=== PATIENT | female | born 1945 | race African-American/Black ===

== ENCOUNTER 2018-08-04 15:41 | Inpatient (IN) | payer MEDICARE, MEDICAID ==
[~2018-08-04] VITALS: Ht 165.1 cm; Wt 79.4 kg
[2018-08-04] MEDS ORDERED: ACETAMINOPHEN 650MG SUPP PR PRN (23:45)
[2018-08-04] MEDS ORDERED: CLONIDINE 0.1MG TABLET PO PRN (23:45)
[2018-08-04] MEDS ORDERED: NA PHOS,M-B/NA PHOS,DI-BA ENEMA 118ML PR PRN (23:45)
[2018-08-04] MEDS ORDERED: HYDROCODONE/ACETAMINOPHEN 10/325MG TABLET PO PRN (23:45)
[2018-08-04] MEDS ORDERED: DOCUSATE SODIUM 100MG CAPSULE PO PRN (23:45)
[2018-08-04] MEDS ORDERED: DIPHENHYDRAMINE 50MG/ML VIAL IV PRN (23:45)
[2018-08-04] MEDS ORDERED: ACETAMINOPHEN 650MG/20.3ML UDC GT PRN (23:45)
[2018-08-04] MEDS ORDERED: MAGNESIUM/ALUMINUM HYDROXIDE/SIMETHICONE 30ML UDC PO PRN (23:45)
[2018-08-04] MEDS ORDERED: ONDANSETRON HCL 4MG/2ML INJ IV PRN (23:45)
[2018-08-04] MEDS ORDERED: ACETAMINOPHEN 325MG TABLET PO PRN (23:45)
[2018-08-04] MEDS ORDERED: IPRATROPIUM/ALBUTEROL 0.5-3(2.5)MG/3ML NEB INH PRN (23:45)
[2018-08-04] MEDS ORDERED: GUAIFENESIN 200MG/10ML SUGAR FREE UDC PO PRN (23:45)
[2018-08-05 00:01] LABS: CHLORIDE 100 mEq/L (98-107)
[2018-08-05 00:02] LABS: BASOPHILS % 0.5 % (0.0-2.0); EOSINOPHILS % 0.1 % (0.0-5.0); HEMATOCRIT. 44.3 % (36.0-48.0); HEMOGLOBIN. 14.8 g/dL (12.0-16.0); INR 1.5; LYMPHOCYTES % 24.7 % (20.0-50.0); MEAN CORPUSCULAR HEMOGLOBIN 28.9 pg (28.0-32.0); MEAN CORPUSCULAR VOLUME 86.5 fL (81.0-99.0); MEAN PLATELET VOLUME 8.9 fl (7.4-10.4); MONOCYTES % 8.1 % (2.0-8.0); NEUTROPHILS % 66.6 % (40.0-76.0); PLATELET 207 x1000/uL (130-400); PROTHROMBIN TIME 15.4 sec (9.1-11.1); RED BLOOD CELL COUNT 5.12 mill/uL (4.2-5.4); RED CELL DISTRIBUTION WIDTH 22.1 % (11.6-14.6)
[2018-08-05] MEDS ORDERED: FUROSEMIDE 40MG/4ML VIAL IVP NR (00:45)
[2018-08-05] MEDS ORDERED: POTASSIUM CHLORIDE 20MEQ/PACKET PO NR (00:45)
[2018-08-05] MEDS ORDERED: ENOXAPARIN 60MG/0.6ML SYR SUBCUT NR (00:45)
[2018-08-05] MEDS ORDERED: ASPIRIN 81MG TABLET PO NR (00:45)
[2018-08-05 01:16] LABS: CLARITY URINE CLEAR (CLEAR); COLOR URINE ORANGE (YELLOW); KETONES URINE NEGATIVE (NEGATIVE); LEUKOCYTE ESTERASE URINE 1+ (NEGATIVE); NITRITE URINE POSITIVE (NEGATIVE); OCCULT BLOOD URINE TRACE (NEGATIVE); PROTEIN URINE 2+ (NEGATIVE); SPECIFIC GRAVITY URINE 1.021 (1.005-1.030)
[2018-08-05 01:34] LABS: *AMPHETAMINES SCREEN URINE NEGATIVE (NEGATIVE); *BARBITURATES SCREEN URINE NEGATIVE (NEGATIVE); *BENZODIAZEPINES SCREEN URINE NEGATIVE (NEGATIVE); *COCAINE SCREEN URINE NEGATIVE (NEGATIVE); METHADONE URINE SCREEN NEGATIVE (NEGATIVE); OPIATES URINE SCREEN NEGATIVE (NEGATIVE)
[2018-08-05 01:35] LABS: CANNABINOID URINE SCREEN NEGATIVE (NEGATIVE); PHENCYCLIDINE URINE SCREEN NEGATIVE (NEGATIVE)
[2018-08-05 01:58] LABS: PLATELET ESTIMATE NORMAL
[2018-08-05] MEDS ORDERED: POTASSIUM CHLORIDE INJ 40 MEQ in DEXT 5% WATER 250 ML IV NR (02:30)
[2018-08-05 06:04] LABS: CHLORIDE 101 mEq/L (98-107)
[2018-08-05 06:09] LABS: BASOPHILS % 0.8 % (0.0-2.0); EOSINOPHILS % 0.4 % (0.0-5.0); HEMATOCRIT. 42.8 % (36.0-48.0); HEMOGLOBIN. 14.1 g/dL (12.0-16.0); MEAN CORPUSCULAR HEMOGLOBIN 28.6 pg (28.0-32.0); MEAN CORPUSCULAR VOLUME 86.6 fL (81.0-99.0); MEAN PLATELET VOLUME 9.1 fl (7.4-10.4); MONOCYTES % 10.3 % (2.0-8.0); NEUTROPHILS % 58.5 % (40.0-76.0); PLATELET 212 x1000/uL (130-400); RED BLOOD CELL COUNT 4.94 mill/uL (4.2-5.4); RED CELL DISTRIBUTION WIDTH 22.5 % (11.6-14.6)
[2018-08-05 06:20] LABS: LDL CHOLESTEROL 103 mg/dL (5-100)
[2018-08-05 06:21] LABS: CREATINE KINASE 114 IU/L (26-192); HDL CHOLESTEROL 31 mg/dL (40-59)
[2018-08-05 06:24] LABS: CREATINE KINASE MB FRACTION 1.7 ng/mL (0.5-3.6)
[2018-08-05 08:21] VITALS: BP 124/88
[2018-08-05] MEDS: FUROSEMIDE 40MG/4ML VIAL IV SCH (10:18)
[2018-08-05] MEDS ORDERED: POTASSIUM CHLORIDE 20MEQ TABLET SR PO SCH ×2 (10:30→14:00)
[2018-08-05 11:06] LABS: T4 FREE 1.56 ng/dL (0.76-1.46)
[2018-08-05] MEDS: ENOXAPARIN 60MG/0.6ML SYR SUBCUT SCH ×2 (11:13→21:07)
[2018-08-05 12:00] VITALS: BP 122/95
[2018-08-05] MEDS: DILTIAZEM HCL 30MG TABLET PO SCH ×2 (14:12→18:19)
[2018-08-05] MEDS: SODIUM CHLORIDE 0.9% INJ 3ML FLUSH IVF SCH ×2 (14:13→21:08)
[2018-08-05 15:55] LABS: CREATINE KINASE MB FRACTION 1.8 ng/mL (0.5-3.6)
[2018-08-05 16:00] VITALS: BP 149/97
[2018-08-05] MEDS ORDERED: DILTIAZEM HCL 30MG TABLET PO SCH (18:00)
[2018-08-05] MEDS ORDERED: POTASSIUM CHLORIDE 20MEQ TABLET SR PO PRN (18:30)
[2018-08-05 20:00] VITALS: BP 113/81
[2018-08-05] MEDS ORDERED: MAGNESIUM 1 G PREMIX 100 ML IV NR (20:00)
[2018-08-05] MEDS ORDERED: ENOXAPARIN 40MG/0.4ML SYR SUBCUT SCH (21:00)
[2018-08-05] MEDS: HYDROCODONE/ACETAMINOPHEN 5/325MG TABLET PO PRN (21:08)
[2018-08-06] VITALS: BP 120/86
[2018-08-06] MEDS: DILTIAZEM HCL 30MG TABLET PO SCH ×4 (01:29→17:58)
[2018-08-06 04:00] VITALS: BP 116/75
[2018-08-06] MEDS: SODIUM CHLORIDE 0.9% INJ 3ML FLUSH IVF SCH ×3 (06:12→20:54)
[2018-08-06 08:00] VITALS: BP 145/94
[2018-08-06] MEDS: ENOXAPARIN 60MG/0.6ML SYR SUBCUT SCH (08:51)
[2018-08-06] MEDS: FUROSEMIDE 40MG/4ML VIAL IV SCH ×2 (08:51→23:11)
[2018-08-06 10:35] LABS: BASOPHILS % 0.6 % (0.0-2.0); EOSINOPHILS % 0.3 % (0.0-5.0); HEMATOCRIT. 43.6 % (36.0-48.0); HEMOGLOBIN. 14.4 g/dL (12.0-16.0); MEAN CORPUSCULAR VOLUME 87.4 fL (81.0-99.0); MEAN PLATELET VOLUME 8.7 fl (7.4-10.4); MONOCYTES % 7.8 % (2.0-8.0); NEUTROPHILS % 61.3 % (40.0-76.0); PLATELET 247 x1000/uL (130-400); RED BLOOD CELL COUNT 4.98 mill/uL (4.2-5.4); RED CELL DISTRIBUTION WIDTH 23.4 % (11.6-14.6)
[2018-08-06 10:43] LABS: CHLORIDE 101 mEq/L (98-107)
[2018-08-06 12:00] VITALS: BP 117/85
[2018-08-06 16:00] VITALS: BP 133/79
[2018-08-06 20:00] VITALS: BP 120/86
[2018-08-06] MEDS: ENOXAPARIN 80MG/0.8ML SYR SUBCUT SCH (20:46)
[2018-08-06] MEDS: CARVEDILOL 3.125 MG TABLET PO SCH (20:47)
[2018-08-06] MEDS ORDERED: ZOLPIDEM TARTRATE 5MG TABLET PO PRN (22:45)
[2018-08-07] MEDS: HYDROCODONE/ACETAMINOPHEN 5/325MG TABLET PO PRN (00:19)
[2018-08-07 01:05] VITALS: BP 104/81
[2018-08-07 04:00] VITALS: BP 112/81
[2018-08-07] MEDS: DILTIAZEM HCL 30MG TABLET PO SCH ×2 (05:35)
[2018-08-07] MEDS: SODIUM CHLORIDE 0.9% INJ 3ML FLUSH IVF SCH ×2 (05:35→13:18)
[2018-08-07 08:00] VITALS: BP 126/85
[2018-08-07] MEDS: CARVEDILOL 3.125 MG TABLET PO SCH (08:41)
[2018-08-07] MEDS: FUROSEMIDE 40MG/4ML VIAL IV SCH (08:43)
[2018-08-07] MEDS: ENOXAPARIN 80MG/0.8ML SYR SUBCUT SCH (08:43)
[2018-08-07] MEDS ORDERED: LOSARTAN POTASSIUM 25 MG TABLET PO SCH (12:00)
[2018-08-07 12:06] VITALS: BP 122/68
[2018-08-07] MEDS ORDERED: APIX5TAB PO (12:07)
[2018-08-07] MEDS ORDERED: COR3 PO (12:07)
[2018-08-07] MEDS ORDERED: LOSA25TA3 PO (12:07)
[2018-08-07] MEDS ORDERED: FURO-151 MT (12:07)
[2018-08-07 13:55] VITALS: BP 122/68
[2018-08-07] MEDS ORDERED: APIXABAN 5 MG TABLET PO SCH (17:00)
== END 2018-08-07 15:40 | disposition home health service (06) | DRG 291 ==
LOC: ER 15:41 → 8WST 23:20 → EDBEDREQ 23:23 → ENRESERV 08-05 07:22
PROVIDERS: ADMIT Family Medicine; ATTEND Family Medicine
DX: I11.0 Hypertensive heart disease with heart failure (principal); I50.31 Acute diastolic (congestive) heart failure; E43 Unspecified severe protein-calorie malnutrition; N39.0 Urinary tract infection, site not specified; I42.9 Cardiomyopathy, unspecified; I48.91 Unspecified atrial fibrillation; E87.6 Hypokalemia; E83.42 Hypomagnesemia; E78.5 Hyperlipidemia, unspecified; Z68.29 Body mass index [BMI] 29.0-29.9, adult; Z90.710 Acquired absence of both cervix and uterus
CPT/HCPCS: 36415; 71045; 78582; 80061; 80305; 82550; 82553; 83036; 83735; 83880; 84132; 84439; 84443; 84484; 85379; 93005; 93306; 93970; 96374; 96375; 99285; A9558; J1650; J1940; J3475; J3480; J7040; J7060

== ENCOUNTER 2021-08-31 13:01 | Emergency (ER) | payer MEDICARE, MEDICAID ==
[~2021-08-31] VITALS: Ht 167.6 cm; Wt 86.0 kg
[~2021-08-31 13:01] MED LIST: APIX5TAB PO; COR3 PO; FURO-151 MT; LOSA25TA3 PO
[2021-08-31 14:17] LABS: BASOPHILS % 0.4 % (0.0-2.0); EOSINOPHILS % 1.3 % (0.0-5.0); HEMATOCRIT. 26.2 % (36.0-48.0); HEMOGLOBIN. 8.1 g/dL (12.0-16.0); LYMPHOCYTES % 23.8 % (20.0-50.0); MEAN CORPUSCULAR HEMOGLOBIN 20.9 pg (28.0-32.0); MEAN CORPUSCULAR VOLUME 68.1 fL (81.0-99.0); MEAN PLATELET VOLUME 7.1 fl (7.4-10.4); MONOCYTES % 6.5 % (2.0-8.0); PLATELET 594 x1000/uL (130-400); RED BLOOD CELL COUNT 3.85 mill/uL (4.2-5.4); RED CELL DISTRIBUTION WIDTH 16.3 % (11.6-14.6)
[2021-08-31 14:33] LABS: PLATELET ESTIMATE INCREASED
[2021-08-31 14:36] LABS: CHLORIDE 102 mEq/L (98-107)
[2021-08-31] MEDS ORDERED: POTASSIUM CHLORIDE 20MEQ TABLET SR PO ONE (17:30)
[2021-08-31 17:37] LABS: INR 1.4; PARTIAL THROMBOPLASTIN TIME 35.8 sec (23.4-31.0); PROTHROMBIN TIME 14.5 sec (9.6-11.0)
[2021-08-31 17:57] LABS: CLARITY URINE CLEAR (CLEAR); COLOR URINE YELLOW (YELLOW); KETONES URINE NEGATIVE (NEGATIVE); LEUKOCYTE ESTERASE URINE NEGATIVE (NEGATIVE); NITRITE URINE NEGATIVE (NEGATIVE); OCCULT BLOOD URINE NEGATIVE (NEGATIVE); PROTEIN URINE NEGATIVE (NEGATIVE)
[2021-08-31 18:10] VITALS: BP 178/83
[2021-08-31] MEDS ORDERED: POTA20TA82 MT (18:27)
== END 2021-08-31 19:03 | disposition home or self-care (01) ==
LOC: ER 13:01
DX: E87.6 Hypokalemia (principal); D17.9 Benign lipomatous neoplasm, unspecified; I10 Essential (primary) hypertension
CPT/HCPCS: 36415; 71045; 80053; 81003; 83880; 84484; 85025; 85379; 93005; 99285

== ENCOUNTER 2022-07-16 14:48 | Emergency (ER) | payer MEDICARE, MEDICAID ==
[~2022-07-16] VITALS: Ht 167.6 cm; Wt 74.5 kg
[~2022-07-16 14:48] MED LIST changes: +POTA-205 MT
[2022-07-16 17:28] LABS: BASOPHILS % 0.2 % (0.0-2.0); EOSINOPHILS % 0.9 % (0.0-5.0); HEMATOCRIT. 32.4 % (36.0-48.0); HEMOGLOBIN. 10.5 g/dL (12.0-16.0); LYMPHOCYTES % 26.5 % (20.0-50.0); MEAN CORPUSCULAR HEMOGLOBIN 26.2 pg (28.0-32.0); MEAN CORPUSCULAR VOLUME 80.9 fL (81.0-99.0); MEAN PLATELET VOLUME 8.4 fl (7.4-10.4); MONOCYTES % 7.7 % (2.0-8.0); NEUTROPHILS % 64.7 % (40.0-76.0); PLATELET 375 x1000/uL (130-400); RED BLOOD CELL COUNT 4.01 mill/uL (4.2-5.4); RED CELL DISTRIBUTION WIDTH 16.4 % (11.6-14.6)
[2022-07-16 17:36] LABS: CHLORIDE 100 mEq/L (98-107)
[2022-07-16 17:38] LABS: INR 1.3; PROTHROMBIN TIME 13.3 sec (9.6-11.0)
[2022-07-16] MEDS ORDERED: KCL 20MEQ/100ML PREMIX 100 ML IV NR (18:15)
[2022-07-16] MEDS ORDERED: POTASSIUM CHLORIDE 20MEQ/PACKET PO NR (18:15)
[2022-07-16] MEDS ORDERED: OFLO5DRO3 LEFTEYE (19:41)
[2022-07-16 20:41] VITALS: BP 166/72
== END 2022-07-16 20:49 | disposition home or self-care (01) ==
LOC: ER 14:48
DX: E87.6 Hypokalemia (principal); H10.022 Other mucopurulent conjunctivitis, left eye; I11.9 Hypertensive heart disease without heart failure; Z86.73 Personal history of transient ischemic attack (TIA), and cerebral infarction without residual deficits; Z90.710 Acquired absence of both cervix and uterus
CPT/HCPCS: 36415; 70450; 80053; 85025; 85610; 96365; 99285; J3480

== ENCOUNTER 2023-02-20 14:21 | Emergency (ER) | payer MEDICARE, MEDICAID ==
[~2023-02-20] VITALS: Ht 165.1 cm; Wt 68.0 kg
[~2023-02-20 14:21] MED LIST changes: -APIX5TAB PO; -COR3 PO; +COR6 PO; +FERR220S9 PO; +LOSA100T4 PO; -LOSA25TA3 PO; +MINO2.5T2 PO; +OMEP20CA14 MT; -POTA-205 MT; +RIVA20TA PO
[2023-02-20 14:39] VITALS: BP 122/77; RESP 16; TEMP 98.5; O2SAT 99
[2023-02-20 14:40] VITALS: PULSE 80
[2023-02-20 15:08] LABS: CHLORIDE 106 mEq/L (98-107); INDEX HEMOLYSI 1 (1-3); INDEX ICTERIC 1 (1-4); INDEX LIPEMIC 1 (1-3); POTASSIUM 3.1 mEq/L (3.5-5.1); SODIUM 141 mEq/L (136-145)
[2023-02-20 15:11] LABS: BASOPHILS % 0.5 % (0.0-2.0); EOSINOPHILS % 0.8 % (0.0-5.0); HEMOGLOBIN. 9.4 g/dL (12.0-16.0); LYMPHOCYTES % 19.9 % (20.0-50.0); MEAN CORPUSCULAR HGB CONC 32.3 g/dL (31.0-37.0); MEAN CORPUSCULAR VOLUME 83.4 fL (81.0-99.0); MEAN PLATELET VOLUME 8.2 fl (7.4-10.4); MONOCYTES % 5.8 % (2.0-8.0); PLATELET 308 x1000/uL (130-400); RED BLOOD CELL COUNT 3.48 mill/uL (4.2-5.4); RED CELL DISTRIBUTION WIDTH 19.9 % (11.6-14.6); WHITE BLOOD COUNT 6.3 x1000/uL (4.5-11.0)
[2023-02-20 15:17] LABS: ALANINE AMINOTRANSFERASE 11 IU/L (13-61); ALBUMIN 3.7 g/dL (3.4-5.0); ASPARTATE AMINOTRANSFERASE 7 IU/L (15-37); BILIRUBIN TOTAL 0.3 mg/dL (0.1-1.0); CALCIUM 9.6 mg/dL (8.5-10.1); CARBON DIOXIDE 34 mEq/L (21-32); CREATININE 1.2 mg/dL (0.6-1.3); GLUCOSE 105 mg/dL (70-105); PROTEIN TOTAL 7.3 g/dL (6.0-8.3); TROPONIN I HIGH SENSITIVITY 20 ng/L (<54); UREA NITROGEN BLOOD 10 mg/dL (7-21)
[2023-02-20 16:22] LABS: CLARITY URINE CLEAR (CLEAR); COLOR URINE YELLOW (YELLOW); GLUCOSE URINE NEGATIVE (NEGATIVE); KETONES URINE NEGATIVE (NEGATIVE); LEUKOCYTE ESTERASE URINE 2+ (NEGATIVE); NITRITE URINE NEGATIVE (NEGATIVE); OCCULT BLOOD URINE NEGATIVE (NEGATIVE); PROTEIN URINE NEGATIVE (NEGATIVE)
[2023-02-20 17:01] LABS: BACTERIA URINE 1+; RBC URINE 0-2 /hpf (0-2); SQUAMOUS EPITHELIAL CELL URINE FEW /lpf (RARE/1+)
[2023-02-20] MEDS ORDERED: MECL-217 MT (21:29)
== END 2023-02-20 21:39 | disposition home or self-care (01) ==
LOC: ER 14:21
DX: H81.12 Benign paroxysmal vertigo, left ear (principal); I11.9 Hypertensive heart disease without heart failure; I50.9 Heart failure, unspecified; I48.91 Unspecified atrial fibrillation; Z90.710 Acquired absence of both cervix and uterus
CPT/HCPCS: 36415; 71045; 80053; 81003; 82962; 84484; 85025; 93005; 99285